=== PATIENT | male | born 1955 | race American Indian/Alaskan Native ===

== ENCOUNTER 2018-03-09 13:19 | Emergency (ER) | payer OTHER ==
[2018-03-09 14:13] VITALS: BP 142/74
--- NOTE | 2018-03-09 17:07 | Emergency Department Report ---
ED Headache HPI - General Chief Complaint: Headache Stated Complaint: HEADACHE Time Seen by Provider: 03/09/18 16:30 Source: patient, family Exam Limitations: no limitations - History of Present Illness Initial Comments: Patient here reportedly is having headache for the last 2 weeks off and on, feels sharp and last 10 seconds each time.. Headache is located to his forehead. He is not having a headache at present, but when he does have a headache. It is 10/10 and sharp. Patient has a history of CVA 20 years ago and is on Plavix since. He is a history of hyperlipidemia and high blood pressure, which is controlled per patient, he takes amlodipine, losartan HCTZ. He takes potassium, and simvastatin. Denies any nausea or vomiting. Denies any blurred vision. Denies any shortness of breath or chest pain. Denies any dizziness or lightheadedness. Denies any change in speech or balance. Pain comes and goes. Nothing makes it better, nothing makes it worse, and he said sometimes he takes Aleve for pain. Timing/Duration: waxing and waning, other (2 weeks) Quality: sharp Head Injury Location: frontal (forehead) Recent Head Trauma: frequent headaches (started 2 weeks ago) Modifying Factors: improves with: other (none) Associated Symptoms: denies: confusion, fatigue, facial pain, fever/chills, flushing, loss of consciousness, nausea/vomiting, nasal congestion, nasal drainage, numbness in legs/feet, rash, seizures, stiff neck, vision changes, weakness Allergies/Adverse Reactions: Allergies tramadol Allergy (Verified 03/09/18 14:08) Headache ED Review of Systems ROS: Stated complaint: HEADACHE Other details as noted in HPI Comment: All other systems reviewed and negative Constitutional: no symptoms reported Eyes: denies: eye pain, eye discharge, vision change ENT: denies: ear pain, throat pain, congestion Respiratory: denies: cough, shortness of breath, wheezing Cardiovascular: denies: chest pain, palpitations Gastrointestinal: denies: abdominal pain, nausea, vomiting, diarrhea, constipation, hematemesis, hematochezia Musculoskeletal: denies: back pain, joint swelling, arthralgia, myalgia Skin: denies: rash, lesions Neurological: headache (comes and goes, none right now). denies: weakness, numbness, paresthesias, confusion, abnormal gait, vertigo Hematological/Lymphatic: denies: easy bleeding, easy bruising ED Past Medical Hx - Past Medical History Previous Medical History?: Yes Hx Hypertension: Yes (on medication) Hx CVA: Yes (20 years ago and on Plavix) Additional medical history: Recent headaches that started 2 weeks ago that comes and goes. - Surgical History Past Surgical History?: Yes Additional Surgical History: bunion removal prostectomy - Family History Family history: diabetes, hypertension - Social History Smoking Status: Never Smoker Substance Use Type: None Other Social History: and lives with ED Physical Exam - General Limitations: No Limitations General appearance: alert, in no apparent distress - Head Head exam: Present: atraumatic, normocephalic, normal inspection, other (normal exam) - Eye Eye exam: Present: normal appearance, PERRL, EOMI. Absent: nystagmus, periorbital swelling, periorbital tenderness Pupils: Present: normal accommodation - ENT ENT exam: Absent: normal exam, normal orophraynx, mucous membranes moist, TM's normal bilaterally - Neck Neck exam: Present: normal inspection, full ROM, other (no C-spine tenderness). Absent: tenderness, lymphadenopathy - Respiratory Respiratory exam: Present: normal lung sounds bilaterally. Absent: respiratory distress, chest wall tenderness - Cardiovascular Cardiovascular Exam: Present: normal rhythm, bradycardia, normal heart sounds. Absent: systolic murmur, diastolic murmur - GI/Abdominal GI/Abdominal exam: Present: soft, normal bowel sounds. Absent: distended, tenderness, guarding, rebound, rigid, organomegaly, mass, bruit, pulsatile mass , hernia - Extremities Exam Extremities exam: Present: full ROM, normal capillary refill, other (no clubbing , cyanosis or edema. Positive pulses all extremities and no neurovascular compromise). Absent: tenderness, pedal edema, joint swelling, calf tenderness - Back Exam Back exam: Present: normal inspection, full ROM, other (ambulates without any difficulties). Absent: tenderness, CVA tenderness (R), CVA tenderness (L), muscle spasm, paraspinal tenderness, vertebral tenderness, rash noted - Neurological Exam Neurological exam: Present: alert, oriented X3, normal gait, reflexes normal. Absent: motor sensory deficit - Expanded Neurological Exam ambulates without any difficulties Neurological exam: Absent: innattentive, memory loss-remote event, memory loss- recent event, ataxia, receptive aphasia, expressive aphasia, total aphasia, tremor, protecting the airway Patient oriented to: Present: person, place, time Speech: Present: fluid speech Cranial nerves: EOM's Intact: Normal, Gag Reflex: Normal, Tongue Deviation: Normal, Nystagmus: Normal, Facial Sensation: Normal Cerebellar function: Finger to Nose: Normal, Romberg: Normal Upper motor neuron: Pronator Drift: Normal, Sensory Extinction: Normal Sensory exam: Upper Extremity Light Touch: Normal, Upper Extremity Pin Prick: Normal, Upper Extremity Temperature: Normal, UE 2 Point Discrimination: Normal, Lower Extremity Light Touch: Normal, Lower Extremity Pin Prick: Normal, Lower Extremity Temperature: Normal, LE 2 Point Discrimination: Normal Motor strength exam: RUE: 5, LUE: 5, RLE: 5, LLE: 5 Best Eye Response (Jared): (4) open spontaneously Best Motor Response (Baxter): (6) obeys commands Best Verbal Response (Baxter): (5) oriented Baxter Total: 15 - Psychiatric Psychiatric exam: Present: normal affect, normal mood - Skin Skin exam: Present: warm, dry, intact, normal color. Absent: rash ED Course Vital Signs 03/09/18 14:09 Temperature 98.1 F Pulse Rate 58 L Respiratory 18 Rate Blood Pressure 142/74 O2 Sat by Pulse 99 Oximetry - Reevaluation(s) Reevaluation #1: 03/09/18 18:13 Patient is still awaiting CT scan of the head and brain. No change in neurological status. Denies any headache. Reevaluation #2: 03/09/18 19:[address] scan results.. No change in neurological status and patient is stable without any headache Reevaluation #3: 03/09/18 20:44 CT scan of the head and brain came back and I spoke to Dr. Malou Tobias regarding results and he is okay with patient being discharged home to stay off caffeine and to follow up with neurologists. I went to inform patient that his CT scan results, was back and I will be discharged him home and patient was nowhere to be found. I paged him overhead and he did not answer. Nurse reported that patient was coming up to the nursing station and report that they told patient to wait a little longer and he went back into the waiting room. Patient is nowhere to be found. I called his personal number and his 's number and there are no answer. Therefore, patient left before given results of CT scan and discharge information. ED Medical Decision Making - Radiology Data Radiology results: report reviewed CT scan of the head reveals patient with no evidence of acute intracranial hemorrhage, areas of low attenuation in the posterior limb of the right internal capsule, left thalmus and cerebellum likely lacunar, consider MRI of the brain for future characterization if there is concern for superimposed acute process or if pattern has no contraindication to MRI. Patient is neurologically intact without any deficit. - Medical Decision Making ED course: Patient came with headache that he's been having 2 weeks, that lasts 10 seconds and he said he came to the emergency room because it happened [address] scan shows no acute findings. Please refer to radiology report for details on CT scan. Patient reevaluated waiting for CT of the head reported and when CT scan finally came back and I went to give him his report, he had left and he has not answered his phone nor is his answered her phone. I am not getting any chance did leave a message on either phone. Patient left before getting CT scan results or discharge instruction paperwork. He did not tell nursing staff that he was leaving. She had no episode of headache in the emergency room. Critical care attestation.: If time is entered above; I have spent that time in minutes in the direct care of this critically ill patient, excluding procedure time. ED Disposition Clinical Impression: H/O: CVA (cerebrovascular accident) Nonintractable episodic headache Qualifiers: Headache type: unspecified Qualified Code(s): R51 - Headache Disposition: ELOPED Is pt being admited?: No Does the pt Need Aspirin: No Condition: Stable
--- NOTE | 2018-03-09 19:57 | Cat Scan Report ---
FINAL REPORT PROCEDURE: CT HEAD/BRAIN W CON TECHNIQUE: Computerized tomography of the head was performed following the IV injection of iodinated nonionic contrast. DLP 920.48 mGy-cm. HISTORY: Headache. History of CVA. COMPARISON: No prior studies are available for comparison. TECHNICAL QUALITY: Satisfactory. FINDINGS: Skull base, calvarium, and scalp: Normal . Paranasal sinuses: Right sided zoe bullosa.. Cerebellum and brainstem: No evidence of hemorrhage, ischemia or mass. 5 mm area of low attenuation in the left cerebellum. Cerebrum: No evidence of hemorrhage, ischemia or mass. 6.5 mm area of low attenuation in the left thalamus. Subtle area of linear low attenuation in the posterior limb of the right internal capsule. Ventricles: Normal in size and morphology for the patient's age . Vasculature: Mild atherosclerosis of the cavernous ICAs. Other: None . IMPRESSION: No CT evidence of acute intracranial hemorrhage. Areas of low attenuation in the posterior limb of the right internal capsule, left thalamus and cerebellum likely lacunes. Consider MRI of the brain for further characterization if there is concern for superimposed acute process and if patient has no contraindication to MRI.
== END 2018-03-09 20:35 | disposition left against medical advice (07) ==
LOC: ED 13:19
DX: R51 Headache (principal); I10 Essential (primary) hypertension; Z86.73 Personal history of transient ischemic attack (TIA), and cerebral infarction without residual deficits
CPT/HCPCS: 70460; 99283